=== PATIENT | male | born 1960 | race Caucasian/White ===

== ENCOUNTER → 2016-06-18 | Outpatient (REF) | payer OTHER, MEDICAID ==
[~2016-06-18] MED LIST: ALLO100T PO; ASPI1TAB PO; CYMB60CA3 PO; GLIM2TAB PO; LISI-542 PO; MECL-68 PO; METF1000 PO; MOBI15TA PO; NEUR800T PO; PRIL20CA9 PO; ROBA750T4 PO; SIMV40TA2 PO; TRAD5TAB PO; TRAZ50TA4 PO; WELLTAB40 PO; androgel TOP
== END ==
LOC: M LAB REF 17:19
PROVIDERS: ATTEND Nurse Practitioner Adult Health
DX: E29.1 Testicular hypofunction (principal)

== ENCOUNTER → 2016-11-03 | Outpatient (REF) | payer OTHER, MEDICAID ==
[~2016-11-03] MED LIST changes: -METF1000 PO; +METF10004 PO; +TRAZ50TA11 PO; -TRAZ50TA4 PO
== END ==
LOC: M LAB REF 12:02
PROVIDERS: ATTEND Nurse Practitioner Adult Health
DX: E29.1 Testicular hypofunction (principal)

== ENCOUNTER 2017-01-08 18:31 | Emergency (ER) | payer MEDICAID, OTHER ==
[~2017-01-08] VITALS: Ht 172.7 cm; Wt 104.5 kg
[2017-01-08] MEDS ORDERED: ASPIRIN 325 MG TAB PO ONE (19:00)
--- NOTE | 2017-01-08 19:35 | REP ---
Chest x-ray: Two views. History: Chest pain. Comparison chest x-ray: November 06, 2008. Findings: EKG monitoring electrodes overlie the chest. The lungs are symmetrically aerated and clear. Pleural angles are sharp. Heart is not enlarged. Pulmonary vasculature is not increased. No significant bony abnormality is seen. Impression: No active disease. Signed by Vijay Lopez MD 01/08/2017 07:46 P
--- NOTE | 2017-01-08 19:38 | ECGEPIP ---
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
[2017-01-08 19:43] LABS: BASO # 0.1 10^3/uL (0.0-0.2); BASO % 0.8 % (0.0-1.0); EOS # 0.2 10^3/uL (0.0-0.50); EOS % 2.3 % (0.0-3.0); IMMATURE GRANULOCYTE % 0.8 % (0-0); LYMPH # 1.1 10^3/uL (1.5-4.5); LYMPH % 16.6 % (24.0-44.0); MEAN CORPUSCULAR HEMOGLOBIN 31.1 pg (27.0-33.0); MEAN CORPUSCULAR HGB CONC 34.8 g/dl (32.0-36.5); MEAN CORPUSCULAR VOLUME 89.4 fl (80.0-96.0); MONO % 14.8 % (0.0-5.0); NEUTROPHILS # 4.3 10^3/uL (1.8-7.7); NEUTROPHILS % 64.7 % (36.0-66.0); PLATELET COUNT, AUTOMATED 206 10^3/uL (150-450); RED CELL DISTRIBUTION WIDTH 12.4 % (11.5-14.5); WHITE BLOOD COUNT 6.6 10^3/uL (4.0-10.0)
[2017-01-08 20:11] LABS: ANION GAP 7 MEQ/L (8-16); BLOOD UREA NITROGEN 14 MG/DL (7-18); CALCIUM LEVEL 8.6 MG/DL (8.5-10.1); CARBON DIOXIDE LEVEL 28 MEQ/L (21-32); CHLORIDE LEVEL 103 MEQ/L (98-107); CREATININE FOR GFR 0.73 MG/DL (0.70-1.30); GLOMERULAR FILTRATION RATE > 60.0 (>56); GLUCOSE, FASTING 170 MG/DL (70-105); POTASSIUM SERUM 3.9 MEQ/L (3.5-5.1); SODIUM LEVEL 138 MEQ/L (136-145)
[2017-01-08] MEDS ORDERED: HEPARIN DRIP 25,000 UNITS in APPROPRIATE DILUENT 1 EA IV SCH (20:15)
[2017-01-08] MEDS ORDERED: HEPARIN SOD (PORCINE) 5000 UNITS/ML VIAL IV ONE (20:15)
[2017-01-08 20:28] LABS: INR 0.96
[2017-01-08] MEDS ORDERED: METOPROLOL TART 25 MG TABLET PO ONE (20:30)
[2017-01-08 20:50] VITALS: BP 110/56
[2017-01-08] MEDS ORDERED: ACETAMINOPHEN 325 MG TAB PO ONE (21:45)
[2017-01-08 21:47] VITALS: BP 125/77
== END 2017-01-08 21:51 | disposition short-term general hospital (02) ==
LOC: M ED 18:31 → EDBD 18:31 → M ED 21:51
DX: I21.4 Non-ST elevation (NSTEMI) myocardial infarction (principal); E11.9 Type 2 diabetes mellitus without complications; I10 Essential (primary) hypertension; E78.5 Hyperlipidemia, unspecified; K21.9 Gastro-esophageal reflux disease without esophagitis; F41.9 Anxiety disorder, unspecified; Z79.84 Long term (current) use of oral hypoglycemic drugs; Z79.899 Other long term (current) drug therapy; Z79.82 Long term (current) use of aspirin; Z87.891 Personal history of nicotine dependence

== ENCOUNTER 2017-02-12 09:14 | Outpatient (RCR) | payer OTHER | END 2017-03-14 | LOC: M CR 09:14 | DX: Z95.1 Presence of aortocoronary bypass graft (principal); I25.10 Atherosclerotic heart disease of native coronary artery without angina pectoris ==

== ENCOUNTER 2017-02-22 08:49 | Outpatient (RCR) | payer OTHER | END 2017-03-14 | LOC: M CR 08:49 | DX: Z95.5 Presence of coronary angioplasty implant and graft (principal); I25.10 Atherosclerotic heart disease of native coronary artery without angina pectoris | CPT/HCPCS: 93798 ==

== ENCOUNTER 2017-03-16 09:16 | Outpatient (RCR) | payer OTHER | END 2017-04-14 | LOC: M CR 03-17 10:18 | DX: Z95.5 Presence of coronary angioplasty implant and graft (principal); I25.10 Atherosclerotic heart disease of native coronary artery without angina pectoris | CPT/HCPCS: 93798 ==

== ENCOUNTER 2017-03-31 10:12 | Emergency (ER) | payer OTHER, MEDICAID ==
[2017-03-31 10:28] LABS: BASO # 0.1 10^3/uL (0.0-0.2); BASO % 0.7 % (0.0-1.0); EOS # 0.2 10^3/uL (0.0-0.50); EOS % 2.7 % (0.0-3.0); HEMATOCRIT 46.1 % (42.0-52.0); HEMOGLOBIN 15.4 g/dl (14.0-18.0); IMMATURE GRANULOCYTE # 0.1 10^3/uL (0-0); IMMATURE GRANULOCYTE % 0.7 % (0-0); LYMPH # 2.7 10^3/uL (1.5-4.5); LYMPH % 33.7 % (24.0-44.0); MEAN CORPUSCULAR HEMOGLOBIN 30.6 pg (27.0-33.0); MEAN CORPUSCULAR HGB CONC 33.4 g/dl (32.0-36.5); MEAN CORPUSCULAR VOLUME 91.5 fl (80.0-96.0); MONO % 12.4 % (0.0-5.0); NEUTROPHILS % 49.8 % (36.0-66.0); PLATELET COUNT, AUTOMATED 253 10^3/uL (150-450); RED BLOOD COUNT 5.04 10^6/uL (4.30-6.10); RED CELL DISTRIBUTION WIDTH 12.8 % (11.5-14.5)
[2017-03-31 10:43] LABS: INR 0.84; PROTHROMBIN TIME 11.5 SECONDS (12.4-14.5)
[2017-03-31] MEDS ORDERED: ASPIRIN 81 MG CHEW TABLET As Ordered (11:03)
[2017-03-31 11:06] LABS: ALBUMIN 3.7 GM/DL (3.2-5.2); ALBUMIN/GLOBULIN RATIO 0.93 (1.00-1.93); ALKALINE PHOSPHATASE 125 U/L (45-117); ALT/SGPT 41 U/L (12-78); ANION GAP 7 MEQ/L (8-16); AST/SGOT 21 U/L (7-37); BILIRUBIN,DIRECT 0.1 MG/DL (0.0-0.2); BILIRUBIN,TOTAL 0.7 MG/DL (0.2-1.0); BLOOD UREA NITROGEN 10 MG/DL (7-18); CALCIUM LEVEL 9.2 MG/DL (8.5-10.1); CARBON DIOXIDE LEVEL 31 MEQ/L (21-32); CHLORIDE LEVEL 102 MEQ/L (98-107); CPK CREATINE PHOSPHOKINASE 144 U/L (39-308); CREATININE FOR GFR 0.86 MG/DL (0.70-1.30); GLOMERULAR FILTRATION RATE > 60.0 (>56); GLUCOSE, FASTING 222 MG/DL (70-105); LIPASE 137 U/L (73-393); POTASSIUM SERUM 3.9 MEQ/L (3.5-5.1); SODIUM LEVEL 140 MEQ/L (136-145); TOTAL PROTEIN 7.7 GM/DL (6.4-8.2); TROPONIN I < 0.02 NG/ML (< 0.10)
[2017-03-31] MEDS: ASPIRIN 81 MG CHEW TABLET PO (11:10)
[2017-03-31 11:12] LABS: CK-MB VALUE MASS 3.3 NG/ML (0.0-3.6); MB/CK RELATIVE INDEX 2.29 (< OR =4); NT-PRO BNP 62 PG/ML (<125)
[2017-03-31 11:14] LABS: D-DIMER QUANT < 270.0 ng/ml (<500)
[2017-03-31 18:22] LABS: CK-MB VALUE MASS 2.4 NG/ML (0.0-3.6); CPK CREATINE PHOSPHOKINASE 121 U/L (39-308); MB/CK RELATIVE INDEX 1.98 (< OR =4); TROPONIN I < 0.02 NG/ML (< 0.10)
== END 2017-03-31 19:06 | disposition home or self-care (01) ==
LOC: M ED 10:12
DX: R07.9 Chest pain, unspecified (principal); E11.9 Type 2 diabetes mellitus without complications; I10 Essential (primary) hypertension; E78.5 Hyperlipidemia, unspecified; G62.9 Polyneuropathy, unspecified; M48.00 Spinal stenosis, site unspecified; I25.2 Old myocardial infarction; Z79.84 Long term (current) use of oral hypoglycemic drugs; Z79.899 Other long term (current) drug therapy; Z79.82 Long term (current) use of aspirin; Z98.890 Other specified postprocedural states; Z87.891 Personal history of nicotine dependence
CPT/HCPCS: 71045

== ENCOUNTER 2017-04-15 09:03 | Outpatient (RCR) | payer OTHER | END 2017-05-12 | LOC: M CR 09:03 | DX: Z51.89 Encounter for other specified aftercare (principal); Z95.5 Presence of coronary angioplasty implant and graft; I25.10 Atherosclerotic heart disease of native coronary artery without angina pectoris ==

== ENCOUNTER → 2018-03-18 | Outpatient (REF) | payer OTHER, MEDICAID ==
[~2018-03-18] MED LIST changes: +ACIDTAB7 PO; +ATOR40TA75; +ATOR80TA59 PO; +CALC500T49 PO; +CLOP75TA2; +LYRI150C PO; +METO1TAB32 PO; +NESI25TA PO; +NITR0.4S14 SL; +PROT20TA11 PO; +TRAZ-160 PO; -TRAZ50TA11 PO
[2018-03-23 00:06] LABS: TESTOSTERONE FREE (DIRECT) 6.4 pg/mL (7.2-24.0)
== END ==
LOC: M LAB REF 11:47
PROVIDERS: ATTEND Nurse Practitioner Adult Health
DX: E29.1 Testicular hypofunction (principal)

== ENCOUNTER 2018-05-12 13:55 | Emergency (ER) | payer MEDICAID, OTHER ==
[~2018-05-12] VITALS: Ht 172.7 cm; Wt 100.0 kg
--- NOTE | 2018-05-12 14:29 | REP ---
CT Head without contrast HISTORY: Head injury COMPARISON: 08/24/2012 There is no intraparenchymal hemorrhage, acute infarct, mass or midline shift. The ventricular system is normal in appearance. There is no extra cerebral collection. There is no fracture. The visualized sinuses are clear. IMPRESSION: There is no intracranial lesion. Electronically Signed by Sin Tello MD 05/12/2018 02:20 P
[2018-05-12] MEDS ORDERED: ONDANSETRON 4MG/2ML VIAL (J2405) IV ONE (17:00)
[2018-05-12] MEDS ORDERED: NS 1,000 ML IV ONE (17:00)
[2018-05-12 17:50] LABS: BASO % 0.3 % (0.0-1.0); EOS % 0.1 % (0.0-3.0); HEMATOCRIT 49.3 % (42.0-52.0); HEMOGLOBIN 17.3 g/dl (13.5-17.5); LYMPH # 1.6 10^3/uL (1.5-4.5); LYMPH % 11.4 % (24.0-44.0); MEAN CORPUSCULAR HEMOGLOBIN 30.4 pg (27.0-33.0); MEAN CORPUSCULAR HGB CONC 35.1 g/dl (32.0-36.5); MEAN CORPUSCULAR VOLUME 86.6 fl (80.0-96.0); MONO # 1.6 10^3/uL (0.0-0.8); MONO % 11.4 % (0.0-5.0); NEUTROPHILS # 10.7 10^3/uL (1.8-7.7); NEUTROPHILS % 76.4 % (36.0-66.0); PLATELET COUNT, AUTOMATED 214 10^3/uL (150-450); RED BLOOD COUNT 5.69 10^6/uL (4.30-6.10); WHITE BLOOD COUNT 14.1 10^3/uL (4.0-10.0)
[2018-05-12 18:30] LABS: BLOOD UREA NITROGEN 18 MG/DL (7-18); CALCIUM LEVEL 9.2 MG/DL (8.5-10.1); CARBON DIOXIDE LEVEL 21 MEQ/L (21-32); CHLORIDE LEVEL 100 MEQ/L (98-107); CPK CREATINE PHOSPHOKINASE 755 U/L (39-308); CREATININE FOR GFR 0.82 MG/DL (0.70-1.30); GLOMERULAR FILTRATION RATE > 60.0 (>56); GLUCOSE, FASTING 174 MG/DL (70-100); MB/CK RELATIVE INDEX 1.36 (< OR =4); POTASSIUM SERUM 4.2 MEQ/L (3.5-5.1); SODIUM LEVEL 133 MEQ/L (136-145); TROPONIN I < 0.02 NG/ML (< 0.10)
[2018-05-12] MEDS ORDERED: KETOROLAC 30 MG/ML VIAL (J1885) IV ONE (19:15)
--- NOTE | 2018-05-12 19:37 | REP ---
Clinical: Trauma. Technique: AP, lateral, swimmers views of the thoracic spine. Findings: Alignment and kyphosis maintained without evidence for acute fracture / compression injury or subluxation. Moderate multilevel degenerative changes include endplate sclerosis with minimal disc space narrowing and bridging osteophytes. Impression: Moderate multilevel degenerative spondylosis. No acute fracture or subluxation appreciated. Electronically Signed by Hitesh Duong MD 05/12/2018 07:29 P
[2018-05-12 20:03] LABS: APPEARANCE, URINE CLEAR (CLEAR); BACTERIA, URINE AUTO NEGATIVE (NEGATIVE); BILIRUBIN, URINE AUTO NEGATIVE (NEGATIVE); BLOOD, URINE BLOOD NEGATIVE (NEGATIVE); COLOR, URINE AMBER (YELLOW); GLUCOSE, URINE (UA) AUTO 1+ mg/dL (NEGATIVE); KETONE, URINE AUTO TRACE mg/dL (NEGATIVE); LEUKOCYTE ESTERASE, URINE AUTO NEGATIVE (NEGATIVE); MUCUS, URINE SMALL (NEGATIVE); NITRITE, URINE AUTO NEGATIVE (NEGATIVE); PROTEIN, URINE AUTO 2+ mg/dL (NEGATIVE); RBC, URINE AUTO 1 /HPF (0-3); SPECIFIC GRAVITY URINE AUTO 1.033 (1.002-1.035); SQUAMOUS EPITHELIAL CELL UR AU 0 /HPF (0-6); WBC, URINE AUTO 2 /HPF (0-3)
[2018-05-12] MEDS ORDERED: ONDA4TAB6 PO (20:16)
[2018-05-12 20:39] VITALS: BP 112/73
--- NOTE | 2018-05-14 09:47 | ECGEPIP ---
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 Order Number: [id number] Reading MD: Chantelle Mar Measurements Intervals [place] Rate: 83 P: 22 KS: 119 QRS: 26 QRSD: 110 T: 36 QT: 347 QTc: 408 Interpretive Statements SINUS RHYTHM WITH SHORT [place] INTERVAL WITH OCCASIONAL VENTRICULAR PREMATURE C COMPLEXES NONSPECIFIC ST T WAVE CHANGES INFERIOR WALL AR AGE UNDETERMINED CW 03/31/17 RATE INCREASED INCREASED ECTOPY Electronically Signed On 05-14-2018 9:47:26 EST by Chantelle Mar
== END 2018-05-12 20:42 | disposition home or self-care (01) ==
LOC: M ED 13:55
DX: R19.7 Diarrhea, unspecified (principal); R11.2 Nausea with vomiting, unspecified; R55 Syncope and collapse; E86.0 Dehydration; M54.9 Dorsalgia, unspecified; I10 Essential (primary) hypertension; I25.2 Old myocardial infarction; R51 Headache; E78.5 Hyperlipidemia, unspecified; G47.30 Sleep apnea, unspecified; K21.9 Gastro-esophageal reflux disease without esophagitis; R73.03 Prediabetes; F41.9 Anxiety disorder, unspecified; F32.9 Major depressive disorder, single episode, unspecified; Z87.19 Personal history of other diseases of the digestive system; Z79.899 Other long term (current) drug therapy; Z79.82 Long term (current) use of aspirin; Z79.84 Long term (current) use of oral hypoglycemic drugs; Z79.02 Long term (current) use of antithrombotics/antiplatelets; Z87.891 Personal history of nicotine dependence; Z95.5 Presence of coronary angioplasty implant and graft; Z96.642 Presence of left artificial hip joint
CPT/HCPCS: 70450; 72072; 80048; 81001; 82550; 82553; 85025; 93005; 96361; 96374; 96375; 99284; J1885; J2405

== ENCOUNTER → 2018-05-31 | Outpatient (REF) | payer OTHER, MEDICAID ==
[~2018-05-31] MED LIST changes: +ONDA4TAB6 PO
== END ==
LOC: M LAB REF 11:25
PROVIDERS: ATTEND Nurse Practitioner Adult Health
DX: R19.7 Diarrhea, unspecified (principal)

== ENCOUNTER → 2018-11-21 | Outpatient (REF) | payer OTHER, MEDICAID ==
[~2018-11-21] MED LIST changes: -ASPI1TAB PO; +ASPI81TA26 PO; -TRAZ-160 PO; +TRAZ-252 PO
[2018-11-23 08:06] LABS: LDL DIRECT 84 mg/dL (0-99)
== END ==
LOC: M LAB REF 17:24
PROVIDERS: ATTEND Nurse Practitioner Adult Health
DX: E78.2 Mixed hyperlipidemia (principal)

== ENCOUNTER 2022-02-10 17:25 | Emergency (ER) | payer MEDICARE, MEDICAID ==
[~2022-02-10] VITALS: Ht 172.7 cm; Wt 103.0 kg
[~2022-02-10 17:25] MED LIST changes: -PANT20TA6 PO; -TAMS1CAP17 PO
[2022-02-10 18:08] LABS: BASO # 0.1 10^3/uL (0.0-0.2); BASO % 0.7 % (0.0-1.0); EOS # 0.2 10^3/uL (0.0-0.5); EOS % 2.3 % (0.0-3.0); HEMATOCRIT 44.2 % (42.0-52.0); LYMPH # 2.8 10^3/uL (1.5-5.0); LYMPH % 28.2 % (24.0-44.0); MEAN CORPUSCULAR HEMOGLOBIN 30.6 pg (27.0-33.0); MEAN CORPUSCULAR HGB CONC 33.9 g/dl (32.0-36.5); MEAN CORPUSCULAR VOLUME 90.2 fl (80.0-96.0); MONO # 1.1 10^3/uL (0.0-0.8); MONO % 11.3 % (2.0-8.0); NEUTROPHILS # 5.6 10^3/uL (1.5-8.5); NEUTROPHILS % 56.7 % (36.0-66.0); PLATELET COUNT, AUTOMATED 258 10^3/uL (150-450); WHITE BLOOD COUNT 9.9 10^3/uL (4.0-10.0)
[2022-02-10] MEDS ORDERED: ASPIRIN 81MG CHEW TABLET PO ONE (18:10)
[2022-02-10] MEDS: NITROGLYCERIN 0.4MG SUBL TABLET SL PRN ×2 (18:22→18:31)
[2022-02-10 18:31] VITALS: BP 146/59
[2022-02-10 18:31] LABS: INR 0.94; PROTHROMBIN TIME 12.7 SECONDS (12.5-14.5)
[2022-02-10 18:32] LABS: CARBON DIOXIDE LEVEL 27 MMOL/L (20-31); CHLORIDE LEVEL 102 MMOL/L (98-107); SODIUM LEVEL 140 MMOL/L (136-145)
[2022-02-10 18:38] LABS: BLOOD UREA NITROGEN 13 MG/DL (9-23); CALCIUM LEVEL 8.8 MG/DL (8.3-10.6); GLUCOSE, FASTING 283 MG/DL (74-106)
[2022-02-10 18:40] LABS: GLOMERULAR FILTRATION RATE > 60.0 (>49)
[2022-02-10 18:46] LABS: PARTIAL THROMBOPLASTIN TIME 25.1 SECONDS (24.8-34.2)
[2022-02-10 18:48] LABS: POTASSIUM SERUM 3.9 MMOL/L (3.5-5.1)
[2022-02-10] MEDS ORDERED: HEPARIN DRIP 25,000 UNITS in IV 1 EA IV SCH (18:55)
[2022-02-10] MEDS ORDERED: CLOPIDOGREL 300 MG TAB (PLAVIX) PO ONE (18:55)
[2022-02-10] MEDS ORDERED: HEPARIN SOD (PORCINE) 5000UNITS/ML 1ML VIAL/SYRINGE IV ONE (18:55)
[2022-02-10 19:30] LABS: RSV AMPLIFICATION NEGATIVE (NEGATIVE)
[2022-02-10 19:45] VITALS: BP 110/64
== END 2022-02-10 19:48 | disposition short-term general hospital (02) ==
LOC: M ED 17:25
DX: I21.4 Non-ST elevation (NSTEMI) myocardial infarction (principal); I25.10 Atherosclerotic heart disease of native coronary artery without angina pectoris; I25.2 Old myocardial infarction; E11.9 Type 2 diabetes mellitus without complications; I10 Essential (primary) hypertension; E78.5 Hyperlipidemia, unspecified; F41.9 Anxiety disorder, unspecified; F32.9 Major depressive disorder, single episode, unspecified; Z95.5 Presence of coronary angioplasty implant and graft; F17.200 Nicotine dependence, unspecified, uncomplicated; Z79.82 Long term (current) use of aspirin; Z79.84 Long term (current) use of oral hypoglycemic drugs; Z79.899 Other long term (current) drug therapy

== ENCOUNTER → 2022-02-10 | Outpatient (REF) | payer OTHER, MEDICAID, MEDICARE ==
[~2022-02-10] MED LIST changes: -CYMB60CA3 PO; +CYMB60CA4 PO; -GLIM2TAB PO; +GLIM2TAB4 PO; -LISI-542 PO; +LISI5TAB11 PO; -MECL-68 PO; +MECL1TAB31 PO; +PANT20TA6 PO; -SIMV40TA2 PO; +SIMV40TA20 PO; +TAMS1CAP17 PO
== END ==
LOC: M LAB REF 13:25
PROVIDERS: ATTEND Nurse Practitioner Adult Health
DX: R07.9 Chest pain, unspecified (principal)

== ENCOUNTER 2022-02-14 19:45 | Emergency (ER) | payer MEDICARE, MEDICAID ==
[~2022-02-14] VITALS: Ht 172.7 cm; Wt 102.3 kg
[2022-02-14] MEDS ORDERED: PANT20TA6 PO (20:13)
[2022-02-14] MEDS ORDERED: TAMS1CAP17 PO (20:13)
[2022-02-14 20:50] LABS: BASO # 0.1 10^3/uL (0.0-0.2); BASO % 0.5 % (0.0-1.0); EOS # 0.2 10^3/uL (0.0-0.5); EOS % 1.8 % (0.0-3.0); HEMOGLOBIN 14.2 g/dl (13.5-17.5); LYMPH # 2.8 10^3/uL (1.5-5.0); MEAN CORPUSCULAR HEMOGLOBIN 30.7 pg (27.0-33.0); MEAN CORPUSCULAR HGB CONC 33.8 g/dl (32.0-36.5); MEAN CORPUSCULAR VOLUME 90.7 fl (80.0-96.0); MONO # 1.2 10^3/uL (0.0-0.8); MONO % 10.5 % (2.0-8.0); NEUTROPHILS # 7.2 10^3/uL (1.5-8.5); NEUTROPHILS % 62.4 % (36.0-66.0); PLATELET COUNT, AUTOMATED 280 10^3/uL (150-450); RED BLOOD COUNT 4.63 10^6/uL (4.30-6.10); WHITE BLOOD COUNT 11.5 10^3/uL (4.0-10.0)
[2022-02-14 21:02] LABS: MAGNESIUM LEVEL 1.1 MG/DL (1.8-2.4)
[2022-02-14 21:03] LABS: BILIRUBIN,DIRECT 0.3 MG/DL (<0.4)
[2022-02-14 21:05] LABS: ALBUMIN 2.8 G/DL (3.2-5.2); ALKALINE PHOSPHATASE 77 U/L (46-116); ALT/SGPT 58 U/L (7.0-40); AST/SGOT 52 U/L (<34); BILIRUBIN,TOTAL 1.2 MG/DL (0.3-1.2); BLOOD UREA NITROGEN 15 MG/DL (9-23); CALCIUM LEVEL 7.4 MG/DL (8.3-10.6); CARBON DIOXIDE LEVEL 20 MMOL/L (20-31); CHLORIDE LEVEL 109 MMOL/L (98-107); CREATININE FOR GFR 0.95 MG/DL (0.70-1.30); GLOMERULAR FILTRATION RATE > 60.0 (>49); GLUCOSE, FASTING 94 MG/DL (74-106); POTASSIUM SERUM 4.1 MMOL/L (3.5-5.1); SODIUM LEVEL 140 MMOL/L (136-145); TOTAL PROTEIN 5.3 G/DL (5.7-8.2)
[2022-02-14] MEDS ORDERED: MAG SULF 1GM/100ML (MAG RUN) 1 GM in IV 1 EA IV ONE ×2 (21:10→22:00)
[2022-02-15] MEDS ORDERED: NS 500 ML IV ONE
[2022-02-15] MEDS ORDERED: HEPARIN DRIP 25,000 UNITS in IV 1 EA IV SCH (00:05)
[2022-02-15] MEDS ORDERED: HEPARIN SOD (PORCINE) 5000UNITS/ML 1ML VIAL/SYRINGE IV ONE (00:05)
[2022-02-15 00:07] LABS: INR 1.02; PROTHROMBIN TIME 13.6 SECONDS (12.5-14.5)
[2022-02-15 00:08] LABS: PARTIAL THROMBOPLASTIN TIME 27.1 SECONDS (24.8-34.2)
[2022-02-15] MEDS ORDERED: CLOPIDOGREL 300 MG TAB (PLAVIX) PO STA (00:22)
[2022-02-15 00:43] LABS: RSV AMPLIFICATION NEGATIVE (NEGATIVE)
[2022-02-15] MEDS ORDERED: ASPIRIN 81MG CHEW TABLET PO ONE (01:55)
[2022-02-15 06:00] VITALS: BP 115/65
== END 2022-02-15 06:40 | disposition short-term general hospital (02) ==
LOC: M ED 19:45
DX: I21.4 Non-ST elevation (NSTEMI) myocardial infarction (principal); E11.9 Type 2 diabetes mellitus without complications; I25.10 Atherosclerotic heart disease of native coronary artery without angina pectoris; I25.2 Old myocardial infarction; I10 Essential (primary) hypertension; E78.5 Hyperlipidemia, unspecified; Z95.5 Presence of coronary angioplasty implant and graft; F17.200 Nicotine dependence, unspecified, uncomplicated; F41.9 Anxiety disorder, unspecified; F32.9 Major depressive disorder, single episode, unspecified; Z79.82 Long term (current) use of aspirin; Z79.84 Long term (current) use of oral hypoglycemic drugs; Z79.899 Other long term (current) drug therapy
CPT/HCPCS: 71045; 80048; 80076; 83735; 84484; 85025; 85610; 85730; 87631; 93005; 96365; 96366; 96375; 99285; J1644; J3475

== ENCOUNTER 2022-09-14 13:46 | Emergency (ER) | payer MEDICARE, MEDICAID ==
[~2022-09-14] VITALS: Ht 172.7 cm; Wt 95.9 kg
[~2022-09-14 13:46] MED LIST changes: +PANT20TA6 PO; +TAMS1CAP17 PO
[2022-09-14 17:58] LABS: BASO # 0.1 10^3/uL (0.0-0.2); BASO % 0.6 % (0.0-1.0); EOS # 0.1 10^3/uL (0.0-0.5); EOS % 0.9 % (0.0-3.0); HEMATOCRIT 49.3 % (42.0-52.0); HEMOGLOBIN 16.4 g/dl (13.5-17.5); LYMPH # 1.6 10^3/uL (1.5-5.0); LYMPH % 16.1 % (24.0-44.0); MEAN CORPUSCULAR HEMOGLOBIN 29.9 pg (27.0-33.0); MEAN CORPUSCULAR HGB CONC 33.3 g/dl (32.0-36.5); MONO # 1.6 10^3/uL (0.0-0.8); MONO % 16.2 % (2.0-8.0); NEUTROPHILS # 6.3 10^3/uL (1.5-8.5); NEUTROPHILS % 65.6 % (36.0-66.0); PLATELET COUNT, AUTOMATED 276 10^3/uL (150-450); RED BLOOD COUNT 5.48 10^6/uL (4.30-6.10); WHITE BLOOD COUNT 9.7 10^3/uL (4.0-10.0)
[2022-09-14 18:26] LABS: BLOOD UREA NITROGEN 14 MG/DL (9-23); CALCIUM LEVEL 9.1 MG/DL (8.3-10.6); CARBON DIOXIDE LEVEL 22 MMOL/L (20-31); CHLORIDE LEVEL 101 MMOL/L (98-107); CREATININE FOR GFR 0.64 MG/DL (0.70-1.30); GLOMERULAR FILTRATION RATE > 60.0 (>49); GLUCOSE, FASTING 93 MG/DL (74-106); POTASSIUM SERUM 4.2 MMOL/L (3.5-5.1); SODIUM LEVEL 137 MMOL/L (136-145)
[2022-09-14] MEDS ORDERED: NORCO, ANEXSIA 5/325MG TABLET (HYDROcodone/ACETAMINOPHEN) PO ONE (18:30)
[2022-09-14 19:17] LABS: ERYTHROCYTE SEDIMENTATION RATE 86 mm/hr (0-20)
[2022-09-14] MEDS ORDERED: traMADol 50 MG TAB PO ONE (19:35)
[2022-09-14] MEDS ORDERED: DOXYCYCLINE HYCLATE 100MG TABLET PO ONE (19:35)
[2022-09-14] MEDS ORDERED: TRAM50TA2 PO (19:37)
[2022-09-14] MEDS ORDERED: DOXY-443 PO (19:37)
[2022-09-14 19:47] VITALS: BP 105/71; TEMP 97.6; O2SAT 97
== END 2022-09-14 19:47 | disposition home or self-care (01) ==
LOC: M ED 13:46
DX: L03.317 Cellulitis of buttock (principal); I12.9 Hypertensive chronic kidney disease with stage 1 through stage 4 chronic kidney disease, or unspecified chronic kidney disease; I25.2 Old myocardial infarction; E11.9 Type 2 diabetes mellitus without complications; Z79.82 Long term (current) use of aspirin; Z79.899 Other long term (current) drug therapy; Z79.84 Long term (current) use of oral hypoglycemic drugs

== ENCOUNTER 2022-10-09 16:23 | Emergency (ER) | payer MEDICARE, MEDICAID ==
[~2022-10-09] VITALS: Ht 172.7 cm; Wt 93.6 kg
[~2022-10-09 16:23] MED LIST changes: +DOXY-443 PO; +TRAM50TA2 PO
[2022-10-09] MEDS ORDERED: TRUL0.5I (16:43)
[2022-10-09] MEDS ORDERED: MELO7.5T35 (16:43)
[2022-10-09 17:02] LABS: HEMATOCRIT 41.3 % (42.0-52.0); HEMOGLOBIN 13.9 g/dl (13.5-17.5); MEAN CORPUSCULAR HEMOGLOBIN 29.8 pg (27.0-33.0); MEAN CORPUSCULAR HGB CONC 33.7 g/dl (32.0-36.5); MEAN CORPUSCULAR VOLUME 88.4 fl (80.0-96.0); PLATELET COUNT, AUTOMATED 236 10^3/uL (150-450); RED BLOOD COUNT 4.67 10^6/uL (4.30-6.10); WHITE BLOOD COUNT 8.1 10^3/uL (4.0-10.0)
[2022-10-09 17:15] LABS: INR 1.06
[2022-10-09 17:30] VITALS: BP 115/68; TEMP 98.3; O2SAT 98
[2022-10-09 17:47] LABS: BLOOD UREA NITROGEN 10 MG/DL (9-23); CALCIUM LEVEL 4.7 MG/DL (8.3-10.6); CARBON DIOXIDE LEVEL 17 MMOL/L (20-31); CHLORIDE LEVEL 119 MMOL/L (98-107); CREATININE FOR GFR 0.54 MG/DL (0.70-1.30); GLOMERULAR FILTRATION RATE > 60.0 (>49); GLUCOSE, FASTING 84 MG/DL (74-106); POTASSIUM SERUM 2.1 MMOL/L (3.5-5.1); SODIUM LEVEL 149 MMOL/L (136-145)
== END 2022-10-09 17:35 | disposition home or self-care (01) ==
LOC: M ED 16:23
DX: S00.01XA Abrasion of scalp, initial encounter (principal); S09.90XA Unspecified injury of head, initial encounter; V58.2XXA Person on outside of pick-up truck or van injured in noncollision transport accident in nontraffic accident, initial encounter; Y92.410 Unspecified street and highway as the place of occurrence of the external cause; I11.9 Hypertensive heart disease without heart failure; I25.10 Atherosclerotic heart disease of native coronary artery without angina pectoris; E11.9 Type 2 diabetes mellitus without complications; Z87.891 Personal history of nicotine dependence; Z79.82 Long term (current) use of aspirin; Z79.899 Other long term (current) drug therapy; Z79.84 Long term (current) use of oral hypoglycemic drugs; Y93.89 Activity, other specified; Y99.8 Other external cause status

== ENCOUNTER → 2023-02-09 | Outpatient (CLI) | payer MEDICARE, MEDICAID ==
[~2023-02-09] MED LIST changes: +ALLO300T2 PO; -CLOP75TA2; +CLOP75TA2 PO; +DULA3PEN SC; +DULO1CAP5 PO; +DULO1CAP6 PO; +MECL-209 PO; -MECL1TAB31 PO; +MELO7.5T35 PO; +TRUL0.5I
== END ==
LOC: M RAD 12:13
PROVIDERS: ATTEND Nurse Practitioner Adult Health
DX: R63.4 Abnormal weight loss (principal)

== ENCOUNTER → 2023-09-08 | Outpatient (CLI) | payer MEDICARE, MEDICAID ==
[~2023-09-08] MED LIST changes: +DOXY-323 PO; -DOXY-443 PO; +ONDA-282 PO; -ONDA4TAB6 PO
== END ==
LOC: M RAD 11:12
PROVIDERS: ATTEND Nurse Practitioner Adult Health
DX: M65.311 Trigger thumb, right thumb (principal)

== ENCOUNTER 2023-10-22 06:57 | Day surgery (SDC) | payer MEDICARE, MEDICAID ==
[~2023-10-22] VITALS: Ht 172.7 cm; Wt 88.3 kg
[~2023-10-22 06:57] MED LIST changes: +CYAN-11 PO; +SEMA1PEN2 SQ; +SIMETHICONE 40MG/0.6ML DROPS 30ML As Ordered ONE
[2023-10-22] MEDS ORDERED: propofoL 200 MG/20 ML VIAL As Ordered ONE (07:15)
[2023-10-22] MEDS: NS 1,000 ML IV ONE (07:16)
[2023-10-22] MEDS ORDERED: GLYCOPYRROLATE INJ 0.2 MG/ML 2 ML VIAL As Ordered ONE (07:37)
[2023-10-22 08:23] VITALS: BP 97/54; O2SAT 95
== END 2023-10-22 08:25 | disposition home or self-care (01) ==
LOC: M OPP 06:57
PROVIDERS: ATTEND Internal Medicine Gastroenterology
DX: Z12.11 Encounter for screening for malignant neoplasm of colon (principal); K63.89 Other specified diseases of intestine; K64.8 Other hemorrhoids; Z79.02 Long term (current) use of antithrombotics/antiplatelets; Z79.82 Long term (current) use of aspirin; Z79.84 Long term (current) use of oral hypoglycemic drugs; Z79.899 Other long term (current) drug therapy; E11.9 Type 2 diabetes mellitus without complications; I10 Essential (primary) hypertension; G47.30 Sleep apnea, unspecified; Z99.89 Dependence on other enabling machines and devices; Z86.74 Personal history of sudden cardiac arrest; Z87.891 Personal history of nicotine dependence; Z95.5 Presence of coronary angioplasty implant and graft
CPT/HCPCS: 45385; 88305; J1596

== ENCOUNTER → 2023-11-20 14:22 | Emergency (ER) | payer MEDICARE, MEDICAID ==
[~2023-11-20 14:22] MED LIST changes: -SIMETHICONE 40MG/0.6ML DROPS 30ML As Ordered ONE
== END | disposition left against medical advice (07) ==
LOC: M ED 14:22
DX: Z53.21 Procedure and treatment not carried out due to patient leaving prior to being seen by health care provider (principal)

== ENCOUNTER → 2023-11-30 | Outpatient (REF) | payer MEDICARE, MEDICAID ==
[2023-11-30 19:12] LABS: VITAMIN B12 LEVEL 705 PG/ML (211-911)
== END ==
LOC: M LAB REF 16:30
PROVIDERS: ATTEND Nurse Practitioner Adult Health
DX: E11.40 Type 2 diabetes mellitus with diabetic neuropathy, unspecified (principal); Z01.89 Encounter for other specified special examinations

== ENCOUNTER → 2024-02-17 | Outpatient (CLI) | payer MEDICARE, MEDICAID ==
[~2024-02-17] MED LIST changes: -DOXY-323 PO; +DOXY-441 PO
== END ==
LOC: M PLARAD 13:53
PROVIDERS: ATTEND Nurse Practitioner Adult Health
DX: R41.3 Other amnesia (principal)